=== PATIENT | male | born 1965 | race Two or more races ===

== ENCOUNTER 2016-08-20 20:43 | Emergency (ER) | payer MEDICAID ==
[~2016-08-20] VITALS: Ht 170.2 cm; Wt 83.9 kg
[2016-08-20] MEDS ORDERED: Norco 5mg/325mg tab ORAL ONE (21:00)
[2016-08-20] MEDS ORDERED: ACETAMINOPHEN-1 EAC1 ORAL (21:25)
[2016-08-20] MEDS ORDERED: IBUPROFEN600 MG ORAL (21:25)
[2016-08-20 21:53] VITALS: BP 183/94
[2016-08-20 22:46] VITALS: BP 164/84
[2016-08-20 22:47] VITALS: BP 183/94
--- NOTE | 2016-08-21 10:55 | Diagnostic Imaging Report ---
Indication: Pain 3 views of the right knee were obtained. Findings: No acute fracture, malalignment, or joint effusion are identified. Joint space is relatively well-maintained. Bone mineralization is diffusely diminished. Vascular calcifications are noted. Impression: No acute injury
--- NOTE | 2016-08-22 00:06 | Emergency Room Report ---
History of Present Illness General Chief Complaint: Abdominal Pain Source: Patient Present Illness HPI 51-year-old male presents ED complaining of right knee pain. States that today he had a mechanical trip and fall landing on his right knee. Denies any other injuries. Denies hitting his head or LOC. States pain is throbbing, 8/10, nonradiating. No other aggravating or relieving factors. Notes pain but is able to bear weight. Per EMS BP is high. Patient notes history of hypertension and just took his evening dose of propranolol prior to arrival. Denies any chest pain or shortness of breath. Denies any headaches or dizziness. No other aggravating or relieving factors. Denies any other associated symptoms Allergies: Coded Allergies: No Known Allergies (Unverified , 08/20/16) Patient History Past Medical History: DM, HTN Past Surgical History: none Pertinent Family History: none Social History: Denies: alcohol use, drug use, smoking Immunizations: UTD Reviewed Nursing Documentation: PMH: Agreed, PSxH: Agreed Nursing Documentation-PMH Past Medical History: No History, Except For Hx Cardiac Problems: No - HYPERLIPIDEMIA Hx Hypertension: Yes Hx Diabetes: Yes Review of Systems All Other Systems: negative except mentioned in HPI Physical Exam Vital Signs Date Time Temp Pulse Resp B/P Pulse Ox O2 Delivery O2 Flow Rate FiO2 08/20/16 20:33 97.3 90 18 180/100 99 Room Air Sp02 EP Interpretation: reviewed, normal General Appearance: no apparent distress, alert, GCS 15, non-toxic Head: normocephalic, atraumatic Eyes: bilateral eye PERRL, bilateral eye normal inspection ENT: hearing grossly normal, normal pharynx, no angioedema, normal voice Neck: full range of motion, supple/symm/no masses Respiratory: chest non-tender, lungs clear, normal breath sounds, speaking full sentences Cardiovascular #1: regular rate, rhythm, no edema Cardiovascular #2: 2+ carotid (R), 2+ carotid (L), 2+ radial (R), 2+ radial (L) , 2+ dorsalis pedis (R), 2+ dorsalis pedis (L) Gastrointestinal: normal bowel sounds, non tender, soft, non-distended, no guarding, no rebound Rectal: deferred Genitourinary: normal inspection, no CVA tenderness Musculoskeletal: back normal, gait/station normal, normal range of motion, tender - R knee Neurologic: alert, oriented x3, responsive, motor strength/tone normal, sensory intact, speech normal Psychiatric: judgement/insight normal, memory normal, mood/affect normal, no suicidal/homicidal ideation Reflexes: 3+ bicep (R), 3+ bicep (L), 3+ tricep (R), 3+ tricep (L), 3+ knee (R) , 3+ knee (L) Skin: normal color, no rash, warm/dry, well hydrated Lymphatic: no adenopathy Procedures Splinting Splinting : Pre-Made Type: LIZBETH wrap - R knee Pre-Proc Neuro Vasc Exam: normal Post-Proc Neuro Vasc Exam: normal Patient Tolerated: Well Complications: None Medical Decision Making Diagnostic Impression: Primary Impression: Knee pain Qualified Codes: M25.561 - Pain in right knee Additional Impression: Hypertension Qualified Codes: I15.9 - Secondary hypertension, unspecified ER Course Hospital Course 51-year-old M presents to ED complaining of R knee pain s/p trip and fall. BP high - h/o hypertension Differential diagnoses include: Fracture, dislocation, sprain, contusion Clinical course Patient placed on stretcher. After initial history and physical, I ordered pain medications and Xrays of R knee Xrays prelim read shows no acute fracture/dislocation. placed in lizbeth wrap, given crutches patient remains asymptomatic although hypertensive. patient can take his BP meds as directed. no indication for emergent therapy Diagnosis - knee pain, hypertension Stable and discharged to home with prescription for Motrin, tylenol #3. apply ice, keep elevated. weight bear as tolerated. Followup with PMD. Return to ED if symptoms recur or worsen Other X-Ray Diagnostic Results Other X-Ray Diagnostic Results : X-Ray Ordered: R knee EP Interpretation: Yes Findings: no fractures, no dislocation, no soft tissue swelling Number of Views: 3 Last Vital Signs Date Time Temp Pulse Resp B/P Pulse Ox O2 Delivery O2 Flow Rate FiO2 08/20/16 22:47 97.3 89 20 183/94 98 Room Air Status: improved Disposition: HOME, SELF-CARE Condition: Stable Scripts Acetaminophen With Codeine (T#3) (TYLENOL #3 TAB*) Y Tab 1 TAB ORAL Q8H Y for For Pain, #20 TAB Prov: LATRICE LAZAR M.D. 08/20/16 Ibuprofen* (MOTRIN*) 600 Mg Tablet 600 MG ORAL Q8H Y for For Pain, #30 TAB 0 Refills Prov: LATRICE LAZAR M.D. 08/20/16 Referrals: NOT CHOSEN IPA/,REFERRING (PCP) Patient Instructions: Knee Pain, [id number] LATRICE LAZAR M.D. Aug 22, 2016 00:06
== END 2016-08-20 22:47 | disposition home or self-care (01) ==
LOC: EDBD 20:43 → EMR 21:45
DX: M25.561 Pain in right knee (principal); I15.9 Secondary hypertension, unspecified; E11.9 Type 2 diabetes mellitus without complications; E78.5 Hyperlipidemia, unspecified; W01.0XXA Fall on same level from slipping, tripping and stumbling without subsequent striking against object, initial encounter; Y92.9 Unspecified place or not applicable; Y99.8 Other external cause status
CPT/HCPCS: 99283